=== PATIENT | male | born 1980 | race African-American/Black ===

== ENCOUNTER 2025-01-21 09:18 | Emergency (ER) | payer OTHER, SELFPAY ==
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
[2025-01-21 09:26] VITALS: BP 133/86; PULSE 64; RESP 14; TEMP 37.2; O2SAT 99
--- OUTSIDE RECORDS SUMMARY | 2025-01-21 10:06 | XMS_ITS ---
lable ketorolac 10 mg tablet TAKE 1 TABLET BY MOUTH EVERY 6 HOURS NEEDED FOR PAIN 07/25 completed Not Available Not Available Not Available meloxicam 7.5 mg tablet Take 1 tablet every day by oral route. 01/21 completed Not Available Not Available Not Available Kenalog 10 mg/mL suspension for injection Take 1 mL by injection route. 2023 active [facility]: [id number] [phone] [phone] Not Available Not Available Not Available ibuprofen 600 mg tablet TAKE 1 TABLET BY MOUTH THREE TIMES DAILY NEEDED FOR PAIN active Not Available Not Available No t Available cyclobenzap rine PRN active Not Available Not Available Not Available Vitals Date Recorded Body mass index (BMI) Body height Oxygen saturation Heart rate Body temperature Body weight Systolic And Diastolic Provider Name and Address Organization Details Last Updated DateTime 2 30.8 kg/m2 167.64 cm 97 % 79 /min 97.9 [degF] 56088.1 4 g 133/84 mm[Hg] Not Available [facility] 3 00:57:25 Date Recorded Body mass index (BMI) Body height Body temperature Body weight Provider Name and Address Organization Details Last Updated DateTime 06/29/2021 30.8 kg/m2 167.64 cm 98.8 [degF] 85770.14 g Not Available [facility] 04/20/2022 00:57:26 Date Recorded Body mass index (BMI) Body height Oxygen saturation Body temperature Body weight Provider Name and Address Organization Details Last Updated DateTime 07/25/2021 30.5 kg/m2 167.64 cm 98 % 98.2 [degF] 34656.9 6 g Not Available [facility] 3 00:57:26 Date Recorded Body height Body mass index (BMI) Body weight Provider Name and Address Organization Details Last Updated DateTime 12/05/2023 167.64 cm 32.3 kg/m2 87726.47 g CESILIA Coon [facility] 12/05/2023 10:02:39 Date Recorded Body height Body mass index (BMI) Body weight Pain severity - 0-10 verbal numeric rating [Score] - Reported Provider Name and Address Organization Details Last Updated DateTime 01/23/2024 167.64 cm 32.3 kg/m2 27146.47 g Dominic Stuart Jose Mikel [place] - [facility] 01/23/2024 09:09:09 Social History Question Answer Notes LastModified by Organizat Oh[employer] Details LastModified Time Tobacco Smoking Status Never Smoker Not Available [facility] 04/20/2022 00:56:58 What Is Your Level Of Caffeine Consumption? None [id number] Information not available 04/20/2022 Have You Ever Been Counseled For Unhealthy Alcohol Use? No [id number] Information not available 04/20/2022 Has Tobacco Cessation Counseling Been Provided? No [id number] Information not available 04/20/2022 Sex: Unknown Functional Status Question Answer Note LastModified by Organizat [employer] Details LastModified Time Do you use any illicit or recreational drugs? No [id number] Information not available 04/20/2022 Do you or have you ever used any other forms of tobacco or nicotine? No [id number] Information not available 04/20/2022 What is your level of alcohol consumption? Occasional [id number] Information not available 04/20/2022 Mental Status None recorded. Family History Relationship Description Onset Age of this Age Resolved Age Notes LastModified by Organization Details LastModified Time Unspecified Relation Diabetes mellitus [id number] Not available 04/20/2022 00:57:12 Medical History Condition Response CYSTITIS N BLINDNESS N RHEUMATIC FEVER N KIDNEY STONES N BLADDER PROBLEMS N Enlarged Prostate N MRSA N SLEEP APNEA N INFECTIOUS DISEASE N LUNG DISEASE/DISORDER N PROSTATE N HEART ARRHYTHMIA N HISTORY OF DRUG ABUSE N INSOMNIA N COPD N RADIATION / CHEMOTHERAPY N HIGH CHOLESTEROL / HYPERLIPIDEMIA N HYPERTHYROIDISM N UTI N BLOOD DISEASES N EDEMA N HYPOTHYROIDISM N SHINGLES N DEPRESSION (INCLUDING POST ) N BOWEL PROBLEMS N BACK / NECK PROBLEMS N HAVE YOU BEEN HOSPITALIZED OR SEEN IN [facility] IN THE PAST YEAR ? N STROKE/TIA N THYROID DISEASE N BENIGN PROSTATIC HYPERPLASIA N DIALYSIS N OBESITY N GERD/NAUSEA N ANEURYSM N OSTEOPOROSIS N Increased Urination N URINARY/BLADDER/KIDNEY PROBLEMS N CORONARY ARTERY DISEASE (CAD) N ARTHRITIS N USE OF BLOOD THINNERS N NO SIGNIFICANT PAST MEDICAL HISTORY N DIABETES, TYPE N EMPHYSEMA N GASTROINTESTINAL DISORDER N PARKINSON N GASTROINTESTINAL BLEEDING N BLOOD CLOTS N Difficulty Urinating N ASTHMA N HEPATITIS / LIVER DISEASE N CATARACTS N GOUT N SLEEP DISORDER N ALZHEIMER'S DISEASE N ERECTILE DYSFUNCTION N HERPES N SEIZURES/EPILEPSY N HEADACHES/MIGRAINES N GI PROBLEMS N Low Testosterone N PACEMAKER N HEART MURMUR N DIZZINESS N AIDS/HIV N KIDNEY DISEASE N HEART DISEASE/HEART PROBLEMS N LIVER DISEASE N MULTIPLE SCLEROSIS N MALE HYPOGONADISM N HYPERTENSION N CANCER: SPECIFY N TOURETTE'S N BLOOD TRANSFUSION N ANEMIA/BLOOD DISORDER N ANESTHESIA COMPLICATIONS N ATRIAL FIBRILLATION N AUTOIMMUNE DISEASE N TUBERCULOSIS N GLAUCOMA N Past Encounters Encounter ID Performer Location Encounter Start Date Encounter Closed Date Diagnosis/Indication Diagnosis SNOMED-CT Code Diagnosis ICD10 Code Diagnosis IMO Codes Diagnosis Note [id number] Froy Traore MD [facility] [address] [id number] 05/18/2021 00:00:00 05/18/2021 11:59:55 [id number] Froy Traore MD [facility] [address] [id number] 06/29/2021 00:00:00 06/29/2021 12:49:29 [id number] Raymon Griffin NP [facility] [address] [id number] 07/25/2021 00:00:00 07/25/2021 11:06:06 [id number] Donnell Rea MD [facility] [place] [address] [place] [address] 12/05/2023 09:42:28 12/05/2023 10:28:40 Pain of left wrist 5299822028 20823 M25.532 Tenosynovi tis of left radial styloid 3859084770 5086547 M65.4 [id number] Donnell Rea MD [facility] [place] [address] [place] [address] 01/23/2024 09:06:56 01/23/2024 09:24:44 Pain of left wrist 7427870460 83614 M25.532 Tenosynovi tis of left radial styloid 5749036176 3836742 M65.4 Health Concerns Section Related Observation LastModified by Organization Detai ls LastModified Time None Recorded Concern Status LastModified by Organization Details LastModified Time None Recorded Advance Directives Directive None Recorded Payers Insurance Date Sequence Insurance Name Policy Number Policy Oakley Covered Member ID Oakley Member ID Guarantor Name 01/21/2024 1 [facility] ON OR AFTER 08/19/20 (MEDICAID REPLACEMENT - HMO) Meño Keene [id number] Meño Keene
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
--- OUTSIDE RECORDS SUMMARY | 2025-01-21 12:27 | XMS_ITS | Clinical Summary ---
Author Organization [facility] Address [address] [place] [address] Care Team Providers Care Crab Backer Name Role Phone Unavailable Primary Care Provider Unavailabl e Source Comments [facility],non-owned Affiliates and Associated Physician Practices is amultiple site organization consisting of ambulatory clinics and hospital sitesin [place], [place], [place] and [place]. This disclosure is being madepursuant to the Care Everywhere program and may not contain all information available regarding this patient. Last updated 17.[facility] [employer] Allergies Active Allergy Reactions Criticality Noted Date Comments Hydrocodone-Acetaminophen 03/28/2016 Medications * Be aware that medications may not be up to date on this document. Always verify current medications with the patient. methylPREDNISolo ne (MEDROL DOSEPAK) 4 MG tabletIndication s:Acute bronchitis, unspecified organism Take by mouth as directed Use dose pack of 4mg tabs, start 24 mg/day, taper by 4mg/day over 6 days per pkg instructions. Take with food. 1 Each 7 Active Additional Information Patient not taking.Reported on 07/06/2016 benzonatate (TESSALON) 100 MG capsuleIndicatio ns:Acute bronchitis, unspecified organism You can take 1-2 tablets PO TID PRN, max dose 6 tablets in 24 hours. 30 Cap 7 Active Additional Information Patient not taking.Reported on 07/06/2016 azithromycin (ZITHROMAX) 250 MG tabletIndication s:Abnormal sputum Take 2 tablets now, then 1 tablet daily for 4 days. 6 Tab 7 Active Additional Information Patient not taking.Reported on 07/06/2016 benzonatate (TESSALON) 100 MG capsuleIndicatio ns:Influenza Take 1 capsule by mouth 3 times daily as needed for Cough 30 capsule 8 Active Immunizations Immunization Administration Dates Next Due TD (ADULT), 5 LF TETANUS TOXOID, ADSORBED, PF Family History Medical History Relation Name Comments Diabetes Mother Relation Name Status Comments Mother Social History Tobacco Use Types Packs/Day Years Used Date Smoking Tobacco: Never Smokeless Tobacco: Never Tobacco Cessation:Counseling Given: No Alcohol Use Standard Drinks/Week Comments No 0 (1 standard drink = 0.6 oz pur e alcohol) Sex and Gender Information Value Date Recorded Sex Assigned at Not on file Legal 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 Gender Identity Not on file Sexual Orientation Not on file Last Filed Vital Signs Vital Sign Reading Time Taken Comments Blood Pressure 110/66 03/05/2017 10:41 AM BENCH TECHNICIAN Pulse 70 03/05/2017 10:41 AM BENCH TECHNICIAN Temperature 37 C (98.6 F) 03/05/2017 10:41 AM BENCH TECHNICIAN Respiratory Rate 16 03/05/2017 10:41 AM BENCH TECHNICIAN Oxygen Saturation 97% 03/05/2017 10:41 AM BENCH TECHNICIAN Inhaled Oxygen Concentration - - Weight 74.8 kg (165 lb) 03/05/2017 10:41 AM BENCH TECHNICIAN Height 167.6 cm (5' 6) 03/05/2017 10:41 AM BENCH TECHNICIAN Body Mass Index 26.63 03/05/2017 10:41 AM BENCH TECHNICIAN Plan of Treatment Health Maintenance Due Date Last Done Comments LIPID TESTING 1980 HIV SCREENING 1995 HEPATITIS C SCREENING 04/10/1998 HEPATITIS B VACCINE (1 of 3 - 19+ 3-dose series) 1999 HPV VACCINE (1 - 3-dose SCDM series) 2007 DEPRESSION SCREENING 02/20/2024 COVID-19 VACCINE (1 - 2024-2 6 season) 2024 INFLUENZA VACCINE (#1) 2024 DTAP/TDAP/TD VACCINES (2 - T d or Tdap) 07/06/2026 07/06/2016 ZOSTER VACCINE (1 of 2) 2030 HIB VACCINE Aged Out No longer eligi ble based on patient's age to complete this topic MENINGOCOCCAL (Group B) VACC INE SHARED DECISION-MAKING Aged Out No longer eligibl e based on patient's age to complete this topic MENINGOCOCCAL GROUPS A/C/Y/W VACCINE Aged Out No longer eligible b ased on patient's age to complete this topic PNEUMOCOCCAL VACCINE Aged Out No long er eligible based on patient's age to complete this topic Insurance [facility]
== END 2025-01-21 10:53 | disposition home or self-care (01) ==
LOC: ANHED 10:52
PROVIDERS: Emergency Provider Nurse Practitioner Family; PCP Internal Medicine Gastroenterology
DX: S39.012A Strain of muscle, fascia and tendon of lower back, initial encounter (principal); S16.1XXA Strain of muscle, fascia and tendon at neck level, initial encounter; S13.4XXA Sprain of ligaments of cervical spine, initial encounter; V49.50XA Passenger injured in collision with unspecified motor vehicles in traffic accident, initial encounter
CPT/HCPCS: 72125; 72131; 99284; L0140